=== PATIENT | male | born 1970 | race Caucasian/White ===

== ENCOUNTER → 2020-04-02 | Outpatient (CLI) | payer BC ==
[~2020-04-02] MED LIST: ACCUNEB SO1.25 MG/1; KEFLEX500 M1 PO; NOHOMEMEDICATIONS
== END ==
LOC: LAB 10:48
PROVIDERS: ATTEND Family Medicine
DX: R05 Cough (principal); R06.02 Shortness of breath; Z20.828 Contact with and (suspected) exposure to other viral communicable diseases